=== PATIENT | male | born 1970 | race Caucasian/White ===

== ENCOUNTER 2020-06-01 15:20 | Outpatient (REF) | payer OTHER, SELFPAY | END 2020-06-01 15:21 | disposition home or self-care (01) | LOC: HO.BBR 15:20 | PROVIDERS: Visit Provider Internal Medicine | DX: Z13.89 Encounter for screening for other disorder (principal) ==

== ENCOUNTER 2024-04-06 14:45 | Outpatient (REF) | payer BC, SELFPAY ==
--- OUTSIDE RECORDS SUMMARY | 2024-04-06 14:51 | XMS_ITS | Clinical Summary ---
Author Organization [facility] Address [address] [place] [address] Care Team Providers Care System Developer Associate Manager Name Role Phone Lindsay Bone NP Primary Care Provider [phone] Encounters Date Type Department Care Team Description 04/02/2024 Telephone Hematology Oncology [address] [place] [phone] Phil Casillas MD from Last 3 Months Surgical History Surgery Date Site/Laterality Comments BLADDER TUMOR EXCISION PROCEDURE:BLADDER TUMOR EXCISION Medical History Medical History Date Comments Hemochromatosis DX:Hemochromatos is Asthma DX:Asthma IBS (irritable bowel syndrome) D X:IBS (irritable bowel syndrome) Vitiligo DX:Vitiligo Family History Medical History Relation Name Comments Cancer Father pancreatic Diabetes Maternal Grandmother Parkinsonism Maternal Grandmother Hypertension Mother Relation Name Status Comments Father Maternal Grandmother Mother Social History Tobacco Use Types Packs/Day Years Used Date Smoking Tobacco: Former Smokeless Tobacco: Never Alcohol Use Standard Drinks/Week Comments Yes 0 (1 standard drink = 0.6 oz pur e alcohol) Sex and Gender Information Value Date Recorded Sex Assigned at Not on file Gender Identity Not on file Sexual Orientation Not on file Obstetrics History Last Filed Vital Signs Vital Sign Reading Time Taken Comments Blood Pressure 140/92 09/19/2022 9:43 AM EDT Sit ting Left arm Pulse 71 09/19/2022 9:43 AM EDT Temperature - - Respiratory Rate - - Oxygen Saturation - - Inhaled Oxygen Concentration - - Weight 130 kg (286 lb) 09/19/2022 9:43 AM EDT Height - - Body Mass Index - - Plan of Treatment Upcoming Encounters Date Type Department Care Team (Late st Contact Info) Description 04/16/2024 3:00 PM EST Office Visit Hematology Oncology [address] [place] [phone] Phil Casillas MD [address] [place] [phone] Health Maintenance Due Date Last Done Comments COVID-19 Vaccine (#1) 08/16/1976 Pneumococcal Vaccine: Pediat rics (0 to 5 Years) and At-Risk Patients (6 to 64 Years) (1 of 2 - PCV) 08/16/1977 DTaP,Tdap,and Td Vaccines (1 - Tdap) 08/16/1990 Hepatitis B Vaccines (1 of 3 - 19+ 3-dose series) 08/16/1990 Zoster Vaccines (1 of 2) 08/16/1990 Cholesterol Screening (Lipid Panel) 02/09/2022 Colorectal Cancer Screening: Colonoscopy 02/09/2022 Depression Screening 02/09/2022 HIV Screening 02/09/2022 Hepatitis C Screening 02/09/2022 Social Influencers of Health Screening 02/09/2022 Influenza Vaccine (#1) 2023 HIB Vaccines Aged Out No longer eligi ble based on patient's age to complete this topic HPV Vaccines Aged Out No longer eligi ble based on patient's age to complete this topic Hepatitis A Vaccines Aged Out No long er eligible based on patient's age to complete this topic IPV Vaccines Aged Out No longer eligi ble based on patient's age to complete this topic MMR Vaccines Aged Out No longer eligi ble based on patient's age to complete this topic Meningococcal ACWY Vaccine Aged Out N o longer eligible based on patient's age to complete this topic RSV Immunization Patients Un hannah 20 months Aged Out No longer eligible b ased on patient's age to complete this topic Varicella Vaccines Aged Out No longer eligible based on patient's age to complete this topic Care Teams System Developer Associate Manager Relationship Specialty Start Date End Date Lindsay Bone NP [address] [place] [address] PCP - General 09/19/22
--- OUTSIDE RECORDS SUMMARY | 2024-04-06 14:52 | XMS_ITS | Clinical Summary ---
Author Organization [facility] Address [address] [place] [address] Care Team Providers Care Transcription Specialist Name Role Phone Nohelia Morales Primary Care Provider Unavailabl e Family History Medical History Relation Comments Cancer Father Diabetes Father Hypertension Father Hypertension Mother Relation Status Comments Father Mother Social History Tobacco Use Types Packs/Day Years Used Date Smoking Tobacco: Former Alcohol Use Standard Drinks/Week Comments Yes 0 (1 standard drink = 0.6 oz pure alcohol) Alcoholic Drinks/day: Occasional social drink Sex and Gender Information Value Date Recorded Sex Assigned at Not on file Legal Sex Male 4:52 PM EST Gender Identity Not on file Sexual Orientation Not on file Plan of Treatment Health Maintenance Due Date Last Done Comments Pneumococcal Vaccine: Pediat rics (0 to 5 Years) and At-Risk Patients (6 to 64 Years) (1 of 2 - PCV) 08/16/1977 Hepatitis B Vaccine (1 of 3 - 19+ 3-dose series) 08/16 Colorectal Cancer Screening: Annual FOBT 08/16/2020 Colorectal Cancer Screening: Colonoscopy 08/16/2020 Colorectal Cancer Screening: Sigmoidoscopy 08/16/2020 Influenza Vaccine (#1) [address] [facility] Care Teams Transcription Specialist Relationship Specialty Start Date End Date Nohelia Morales PCP - General 09/04/21
--- OUTSIDE RECORDS SUMMARY | 2024-04-06 14:52 | XMS_ITS | Encounter Summary ---
Author Organization [facility] Address [address] [place] [address] Care Team Providers Care Doll Dresser Name Role Phone Lindsay Bone ANUP Primary Care Provider [phone] Encounter Details Date Type Department Care Team (Late st Contact Info) Description 04/02/2024 Telephone [facility] Hematology Oncology [address] [place] [address] Phil Casillas MD [address] [place] [address] Social History Tobacco Use Types Packs/Day Years Used Date Smoking Tobacco: Former Smokeless Tobacco: Never Alcohol Use Standard Drinks/Week Comments Yes 0 (1 standard drink = 0.6 oz pur e alcohol) Sex and Gender Information Value Date Recorded Sex Assigned at Not on file Gender Identity Not on file Sexual Orientation Not on file documented as of this encounter Progress Notes * Sara Jain MA - 04/02/2024 3:49 PM EST reviewed results. Recommends phlebotomy monthly. Patient needs a FOV scheduled in the next few weeks Phlebotomy order faxed to [facility]. I called patient and lvm, requesting call back to office to schedule a FOV * Sara Jain MA - 04/02/2024 11:11 AM EST I called and spoke to Juan. He [facility] Results printed and scanned. Please review and advise * Phil Casillas MD - 04/02/2024 9:35 AM EST It looks like he missed the appointment last year, therefore please have him do labs make an appointment to see me and after that I will order the phlebotomy please let him know * Guillermina Flowers - 04/02/2024 9:30 AM EST Patient would like to get back on track with phlebotomy orders and is requesting a new order be sent to [facility] and also questions a follow up. Please let him know at [phone] documented in this encounter Plan of Treatment Upcoming Encounters Date Type Department Care Team (Late st Contact Info) Description 04/16/2024 3:00 PM EST Office Visit [facility] Hematology Oncology [address] [place] [phone] Phil Casillas MD [address] [place] [phone] Scheduled Orders Name Type Priority Associated Diagnoses Orde r Schedule Comprehensive metabolic panel Lab Routine Hereditary hemochromatosis (CMS/HCC) Every 12 weeks for 2 Occurrences starting 04/02/2024 until 04/02/2025 CBC and differential Lab Routine Hereditary hemochromatosis (CMS/HCC) Every 12 weeks for 2 Occurrences starting 04/02/2024 until 04/02/2025 Ferritin Lab Routine Hereditary hemochromatosis (CMS/HCC) Every 12 weeks for 2 Occurrences starting 04/02/2024 until 04/02/2025 Iron and TIBC Lab Routine Hereditary hemochromatosis (CMS/HCC) Every 12 weeks for 2 Occurrences starting 04/02/2024 until 04/02/2025 documented as of this encounter Visit Diagnoses Diagnosis Hereditary hemochromatosis (CMS/HCC)- Primary Hereditary hemochromatosis documented in this encounter Care Teams Doll Dresser Relationship Specialty Start Date End Date Lindsay Bone NP [address] [place] [address] PCP - General 09/19/22 documented as of this encounter
--- OUTSIDE RECORDS SUMMARY | 2024-04-06 14:52 | XMS_ITS | Clinical Summary ---
Author Organization [facility] Address [address] [place] [address] Care Team Providers Care Diabetes Specialist Name Role Phone Lindsay Bone NP Primary Care Provider [phone] Allergies Active Allergy Reactions Criticality Noted Date Comments Codeine 05/21/2021 Migraines Penicillins Rash Low 09/07/2016 Benzonatate 05/21/2021 Medications Medication Sig Dispensed Refills Start Date End Date Status metoprolol tartrate (LOPRESSOR) 100 MG tablet Take 100 mg by mouth daily. 0 Active beclomethasone Diprop HFA (Qvar RediHaler) 40 MCG/ACT inhaler Inhale into the lungs. 0 02/12/2021 Active rimegepant (NURTEC ODT) 75 MG TBDP ODT Take 1 tablet (75 mg total) by mouth. 0 Active Active Problems Problem Noted Date Diagnosed Date Weight loss 09/19/2022 H/O total knee replacement, bilateral 09/19/2022 H/O interstitial nephritis 03/13/2017 Stage 2 chronic kidney disease 03/13/2017 Transaminitis 09/10/2016 Malignant neoplasm of overlapping sites of bladd er 09/10/2016 Hereditary hemochromatosis 09/10/2016 Family History Medical History Relation Name Comments Cancer Father pancreatic Diabetes Maternal Grandmother Parkinsonism Maternal Grandmother Hypertension Mother Relation Name Status Comments Father Maternal Grandmother Mother Social History Tobacco Use Types Packs/Day Years Used Date Smoking Tobacco: Former Smokeless Tobacco: Never Alcohol Use Standard Drinks/Week Comments Yes 0 (1 standard drink = 0.6 oz pur e alcohol) social Sex and Gender Information Value Date Recorded Sex Assigned at Not on file Gender Identity Not on file Sexual Orientation Not on file Job Start Date Occupation Industry Not on file Not on file Not on file Last Filed Vital Signs Vital Sign Reading Time Taken Comments Blood Pressure 140/92 09/19/2022 9:43 AM EDT Pulse 71 09/19/2022 9:43 AM EDT Temperature 36.3 ??C (97.4 ??F) 09/19/2022 9:43 AM ED T Respiratory Rate - - Oxygen Saturation 99% 09/19/2022 9:43 AM EDT Inhaled Oxygen Concentration - - Weight 129.7 kg (286 lb) 09/19/2022 9:43 AM EDT Height 188 cm (6' 2 ) 09/15/2018 9:55 AM EDT Body Mass Index 36.72 09/15/2018 9:55 AM EDT Plan of Treatment Health Maintenance Due Date Last Done Comments Hepatitis B Vaccines (1 of 3 - 3-dose series) 1971 Hepatitis C Screening 1971 COVID-19 Vaccine (#1) 08/16/1976 Pneumococcal Vaccine (1 of 2 - PCV) 08/16/1977 Depression Screening 1983 Preventative Health Evaluation 08/16/1989 Shingrix-Zoster Vaccine (1 o f 2) 08/16/1990 Colon Cancer Screening (Colonoscopy) 08/16/2016 Influenza Vaccine (#1) 2023 DTap / Tdap / Td (2 - Td or Tdap) 08/02/2030 08/02/2020, 09/22/2008 RSV Ped < 20 months Aged Out No longe r eligible based on patient's age to complete this topic Care Teams Diabetes Specialist Relationship Specialty Start Date End Date Lindsay Bone NP [address] [address] PCP - General Oncology 09/19/22
== END 2024-04-06 14:46 | disposition home or self-care (01) ==
LOC: HO.BBR 14:45
PROVIDERS: Visit Provider Internal Medicine
DX: Z13.89 Encounter for screening for other disorder (principal)

== ENCOUNTER 2024-05-04 14:52 | Outpatient (REF) | payer BC, SELFPAY ==
--- OUTSIDE RECORDS SUMMARY | 2024-05-04 18:48 | XMS_ITS | Clinical Summary ---
Author Organization [facility] Address [address] [place] [address] Care Team Providers Care Child Adolescent Psychiatrist Name Role Phone Nohelia Morales Primary Care [...] Sigmoidoscopy 08/16/2020 Influenza Vaccine (#1) 2023 Insurance [facility] Care Teams Child Adolescent Psychiatrist Relationship Specialty Start Date End Date Nohelia Morales PCP - General 09/04/21
--- OUTSIDE RECORDS SUMMARY | 2024-05-04 18:48 | XMS_ITS | Clinical Summary ---
Author Organization [facility] Address [address] [place] [address] Phone Care Team Providers Care Senior Product Consultant Name Role Phone MarySarah ANUP Primary Care Provider [phone] Medications Nurtec 75 mg dispersible tablet TAKE 1 TABLET BY MOUTH EVERY OTHER DAY NEEDED FOR MIGRAINE HEADACHES Active Encounters Date Type Department Care Team Description 04/16/2024 3:00 PM EST Office Visit Hematology Oncology [address] [place] [phone] Phil Boo MD Hereditary hemochromatosis (CMS/HCC) (Primary Dx) 04/02/2024 Telephone Hematology Oncology [address] [place] [phone] Phil Boo MD from Last 3 Months Surgical History [...] at Not on file Legal Sex Male 10:23 AM EST Gender Identity Not on file Sexual Orientation Not on file Obstetrics History Last Filed Vital Signs Vital Sign Reading Time Taken Comments Blood Pressure 150/81 04/16/2024 3:03 PM EST Pulse 70 04/16/2024 3:03 PM EST Temperature 36.4 ??C (97.5 ??F) 04/16/2024 3:03 PM ES T Respiratory Rate - - Oxygen Saturation 96% 04/16/2024 3:03 PM EST Inhaled Oxygen Concentration - - Weight 125 kg (275 lb 9.2 oz) 04/16/2024 3:03 PM EST Height - - Body Mass Index - - Plan of Treatment Upcoming Encounters Date Type Department Care Team (Late st Contact Info) Description 05/17/2024 8:30 AM EDT Appointment Ultrasound [address] [place] [address] 04/18/2025 2:00 PM EST Office Visit Hematology Oncology [address] [place] [address] Key-Phil Juarez MD [address] [place] [address] Health Maintenance Due Date Last Done Comments Hepatitis B Vaccines (1 of 3 - 19+ 3-dose series) 08/16/1990 Pneumococcal Vaccine: 50+ Years (1 of 2 - PCV) 08/16/1990 Pneumococcal Vaccine: Pediatrics (0 to 5 Years) and At-Risk Patients (6 to 64 Years) (1 of 2 - PCV) 08/16/1990 Zoster Vaccines (1 of 2) 08/16/1990 Cholesterol Screening (Lipid Panel) 02/09/2022 Colorectal Cancer Screening: Colonoscopy 02/09/2022 Depression Screening 02/09/2022 HIV Screening 02/09/2022 Hepatitis C Screening 02/09/2022 Social Influencers of Health Screening 02/09/2022 COVID-19 Vaccine (4 - 2023-2 5 season) 2023 08/26/2021, 07/27/2020, 06/28/2020 Influenza Vaccine (#1) 2023 Hypertension/CHF/CAD Annual BMP Blood Test 04/16/2024 DTaP,Tdap,and Td Vaccines (4 - Td or Tdap) 08/02/2030 08/02/2020, 05/13/2018, 09/22/2008 HIB Vaccines Aged Out No longer eligi [...] patient's age to complete this topic Meningococcal B Vacine Aged Out No lo nger eligible based on patient's age to complete this topic RSV Immunization Patients Under 20 months Aged Out No longer eligible b ased on patient's age to complete this topic Varicella Vaccines Aged Out No longer eligible based on patient's age to complete this topic Insurance Care Teams Senior Product Consultant Relationship Specialty Start Date End Date Sarah Hernandez NP [address] [facility] [address] [place] [address] PCP - General Nurse Practitioner 04/16/24
--- OUTSIDE RECORDS SUMMARY | 2024-05-04 18:48 | XMS_ITS | Clinical Summary ---
Author Organization [facility] Address [address] [place] [address] Care Team Providers Care Tomato Pulper Operator Name Role Phone Lindsay Bone NP Primary Care Provider [phone] Allergies Active Allergy Reactions Criticality Noted Date [...] age to complete this topic Care Teams Tomato Pulper Operator Relationship Specialty Start Date End Date Lindsay Bone NP [address] [address] PCP - General Oncology 09/19/22
--- OUTSIDE RECORDS SUMMARY | 2024-05-04 18:48 | XMS_ITS | Encounter Summary ---
Author Organization [facility] Address [address] [place] [address] Care Team Providers Care Casing Mixer Name Role Phone Sarah Hernandez NP Primary Care Provider [phone] Reason for Referral * Imaging (Routine) - Authorized Specialty Diagnoses / Procedures Referred By Maricel mahajan Referred To Contact Radiology Diagnoses Hereditary hemochromatosis (CMS/HCC) Procedures US Abdomen Limited Phil Casillas MD [address] [place] [address] Phone: tel: fax: [address] [address] Phone: tel: Referral ID Status Reason Start Date Expiration Date V isits Requested Visits Authorized [id number] Authorized 04/16/2024 04/16/2025 1 1 Encounter Details Date Type Department Care Team (Latest Contact Info) Description 04/16/2024 3:00 PM EST Office Visit [facility] Hematology Oncology [address] [place] [phone] Phil Casillas MD [address] [place] [address] Hereditary hemochromatosis (CMS/HCC) (Primary Dx) Social History Tobacco Use Types Packs/Day Years [...] on file documented as of this encounter Last Filed Vital Signs Vital Sign Reading [...] - - Body Mass Index - - documented in this encounter Progress Notes * Phil Mackey-MD Ann - 04/16/2024 3:00 PM EST CHIEF COMPLAINT: No chief complaint on file. IDENTIFIER:Juan Taylor is a 53 y.o. male. HPI: The patient returns for follow up of hereditary hemochromatosis. For details of initial diagnosis and follow up until JAN 02, 2024- please refer to notes from prior [facility] EMR last note dated 09/19/2022 Patient has been following in clinic intermittently. Most recent note is reviewed. He called the clinic few weeks ago and patient to have a follow-up. Lab work was performed that showed iron saturation at 72% and ferritin 973. Therefore he has been started back on phlebotomy The patient's request reviewed clinic notes, he had a genetic testing performed through his PCP in [place] several years previously, results are not available The following is copied, reviewed and edited Cancer Staging No matching staging information was found for the patient. Oncology History No history exists. 08/2022- Mr Taylor returns for evaluation of hereditary hemochromatosis. Pt was given genetic testing years ago, details not available. 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 He was seen in clinic in 2013, with ferritin in the 600' s and iron saturation 85%. He was started on therapeutic phlebotomy program at [facility], but discontinued after 4 treatments. He haddiffuse musculoskeletal pain and arthritis, which is persistent. REcent lab work at PCP office revealed liver function abnormalities, elevated ferritin at 1140, iron saturation > 90%, therefore here for hematology evaluation. Update medical history -- in the interim patient was diagnosed with bladder cancer (Dr Long Skaggs, Cystoscopy for hematuria), no chemotherapy required, superficial, and is on surveillance cystoscopy program. ROS: GENERAL: No malaise, significant weight loss or fever NECK: No lumps, goiter, pain or significant neck swelling RESPIRATORY: No cough, wheezing or shortness of breath CARDIOVASCULAR: No chest pain, leg swelling or palpitations GI: No abdominal discomfort, blood in stools or black stools MUSCULOSKELETAL: No joint pain or swelling, back pain, or muscle pain. HEMATOLOGY/LYMPHOLOGY No prolonged bleeding, easy bruisability or swollen nodes Other Systems review is non contributory PAST MEDICAL HISTORY: Active Ambulatory Problems Diagnosis Date Noted No Active Ambulatory Problems Resolved Ambulatory Problems Diagnosis Date Noted No Resolved Ambulatory Problems Past Medical History: Diagnosis Date Asthma Hemochromatosis IBS (irritable bowel syndrome) Vitiligo SOCIAL HISTORY: Social History Tobacco Use Smoking status: Former Smokeless tobacco: Never Substance Use Topics Alcohol use: Yes FAMILY HISTORY: Family History Problem Relation Name Age of Onset Hypertension Mother Cancer Father pancreatic Parkinsonism Maternal Grandmother Diabetes Maternal Grandmother Current Outpatient Medications: Nurtec 75 mg dispersible tablet, TAKE 1 TABLET BY MOUTH EVERY OTHER DAY NEEDED FOR MIGRAINE HEADACHES, Disp: , Rfl: Not on File PHYSICAL EXAM: Visit Vitals BP (!) 150/81 (BP Location: Left arm, Patient Position: Sitting) Pulse 70 Temp 36.4 ??C (97.5 ??F) (Temporal) Wt 125 kg (275 lb 9.2 oz) SpO2 96% Smoking Status Former APPEARANCE: Alert and in no acute distress EYES: PERRL, conjunctiva pink and sclera are Normal without icterus ORAL CAVITY: No erythema or exudates NECK: Neck supple, no adenopathy, HEART: RRR with normal S1 and S2, no murmurs, no gallops, no JVD appreciated LUNG: clear to auscultation bilaterally Percussion note normal LYMPH NODES: No palpable superficial adenopathy ABDOMEN: Bowel sounds normoactive, no bruits, soft, non-tender, without organomegaly or palpable masses EXTREMITIES: Extremities warm and well perfused without clubbing, cyanosis, rash or edema NEURO: Oriented X 3, no focal weakness; sensation is normal LABS: Review of Lab results , interpreted No results found for: WBC , HGB , HCT , MCV , PLT No results found for: NA , K , CL , CO2 , GLUCOSE , BUN , CREATININE , CALCIUM , PROT , ALBUMIN , BILITOT , AST , ALT , URICACID , PHOS , MG , ALKPHOS , CKTOTAL , EGFR Review of Imaging, interpreted No image results found. Review of External Documentation Tests ordered - Labs every 3 months IMPRESSION: 1. Hereditary hemochromatosis (CMS/HCC) PLAN: #1 Hereditary hemochromatosis, patient was off Phlebotomy for 3 years Now ferritin is 973 Restart therpeutic phlebotomy q 2 monthly, recheck in 3 months, if no significant improvement may need to change to every 2 weeks phlebotomy 500 ml to be removed each time, referral sent to [facility], FDA approved program However pts blood may not be usable due to recent diagnosis of superficial bladder cancer. Check Hb prior to each phlebotomy, hold if Hb less than 11.5 Patient plans to adhere to the program this time. #2 Follow up in clinic in 6 months Goal ferritin = 50, as patient does not have hepatitis C or other inflammation. He may take 12 -20 treatments to achieve goal. Rec baseline liver USS and screening for hepatoma if any cirrhosis. Testing of family members --patient plans to have testing, and thereafter children as they grow older. #3 at the patient's request I reviewed our prior notes until 2016, however we do not have any documentation of his genetic testing, advised to contact PCP office #4 IBS-symptoms are stable with .elimination diet current follow-up in 1 year and so review results,. In the interim will monitor his lab work. Patient is in agreement with plan Pain Control--no issues Health Care Proxy--no one Phil Casillas MD Cc Sarah Hernandez NP documented in this encounter Plan of Treatment Upcoming Encounters Date Type Department Care Team (Late st Contact Info) Description 05/17/2024 8:30 AM EDT Appointment [facility] Ultrasound [address] [place] [address] 04/18/2025 2:00 PM EST Office Visit [facility] Hematology Oncology [address] [place] [phone] Key-Phil Juarez MD [address] [place] [address] Scheduled Orders Name Type Priority Associated Diagnoses Orde r Schedule US Abdomen Limited Imaging Routine Hereditary hemochromatosis (CMS/HCC) Expected: 04/23/2024 (Approximate), Expires: 04/16/2025 Comprehensive metabolic panel Lab Routine Hereditary hemochromatosis (CMS/HCC) Every 12 weeks for 2 Occurrences starting 04/16/2024 until 04/16/2025 CBC and differential Lab Routine Hereditary hemochromatosis (CMS/HCC) Every 12 weeks for 2 Occurrences starting 04/16/2024 until 04/16/2025 Ferritin Lab Routine Hereditary hemochromatosis (CMS/HCC) Every 12 weeks for 2 Occurrences starting 04/16/2024 until 04/16/2025 Iron and TIBC Lab Routine Hereditary hemochromatosis (CMS/HCC) Every 12 weeks for 2 Occurrences starting 04/16/2024 until 04/16/2025 documented as of this encounter Visit Diagnoses Diagnosis Hereditary hemochromatosis (CMS/HCC)- Primary Hereditary hemochromatosis documented in this encounter Historical Medications * This list may reflect changes made after this encounter. Nurtec 75 mg dispersible tablet TAKE 1 TABLET BY MOUTH EVERY OTHER DAY NEEDED FOR MIGRAINE HEADACHES added in this encounter Care Teams Casing Mixer Relationship Specialty Start Date End Date Sarah Hernandez NP [address] [place] [phone] PCP - General Nurse Practitioner 04/16/24 documented as of this encounter
== END 2024-05-04 14:53 | disposition home or self-care (01) ==
LOC: HO.BBR 14:52
PROVIDERS: Visit Provider Internal Medicine
DX: Z13.89 Encounter for screening for other disorder (principal)

== ENCOUNTER 2024-06-04 12:04 | Outpatient (REF) | payer BC, SELFPAY ==
--- OUTSIDE RECORDS SUMMARY | 2024-06-04 14:03 | XMS_ITS | Clinical Summary ---
Author Organization [facility] Address [address] [place] [address] Phone Care Team Providers Care Software Programmer Name Role Phone Sarah Hernandez NP Primary Care Provider [phone] Medications Nurtec 75 mg dispersible tablet TAKE 1 TABLET BY MOUTH EVERY OTHER DAY NEEDED FOR MIGRAINE HEADACHES Active Encounters Date Type Department Care Team Description 05/10/2024 Telephone [facility] Hematology Oncology [address] [place] [phone] Phil Boo MD 04/16/2024 3:00 PM EST Office Visit [facility] Hematology Oncology [address] [place] [phone] Phil Boo MD Hereditary hemochromatosis (CMS/HCC) (Primary Dx) 04/02/2024 Telephone [facility] Hematology Oncology [address] [place] [phone] Phil Boo MD from Last 3 Months [...] Information Value Date Recorded Sex Assigned at Male 05/12/2024 9:47 AM EDT Legal Sex Male 10:23 AM EST Gender Identity Male 05/12/2024 9:47 AM EDT Sexual Orientation Straight 05/12/2024 9: 47 AM EDT Obstetrics History Last Filed Vital Signs Vital [...] Care Team (Late st Contact Info) Description 06/14/2024 7:00 AM EDT Appointment [facility] Ultrasound [address] [place] [address] 04/18/2025 2:00 PM EST Office Visit [facility] Hematology Oncology [address] [place] [phone] Phil Casillas MD [address] [place] [phone] Health Maintenance Due Date Last Done Comments [...] patient's age to complete this topic Insurance [facility] Care Teams Software Programmer Relationship Specialty Start Date End Date Sarah Hernandez NP [address] [facility] [address] [place] [phone] PCP - General Nurse Practitioner 04/16/24
--- OUTSIDE RECORDS SUMMARY | 2024-06-04 14:03 | XMS_ITS | Clinical Summary ---
Author Organization [facility] Address [address] [place] [address] Care Team Providers Care Production Specialist Name Role Phone Lindsay Bone NP Primary Care Provider [phone] Allergies Active Allergy Reactions Criticality Noted Date [...] age to complete this topic Care Teams Production Specialist Relationship Specialty Start Date End Date Lindsay Bone NP [address] [address] PCP - General Oncology 09/19/22
--- OUTSIDE RECORDS SUMMARY | 2024-06-04 14:03 | XMS_ITS | Clinical Summary ---
Author Organization [facility] Address [address] [place] [address] Care Team Providers Care Brick Setter Operator Name Role Phone Nohelia Morales Primary Care [...] Sigmoidoscopy 08/16/2020 Influenza Vaccine (#1) 2023 Insurance [facility] Care Teams Brick Setter Operator Relationship Specialty Start Date End Date Nohelia Morales PCP - General 09/04/21
== END 2024-06-04 12:05 | disposition home or self-care (01) ==
LOC: HO.BBR 12:04
PROVIDERS: Visit Provider Internal Medicine
DX: Z13.89 Encounter for screening for other disorder (principal)

== ENCOUNTER 2024-07-13 14:59 | Outpatient (REF) | payer BC, SELFPAY ==
--- OUTSIDE RECORDS SUMMARY | 2024-07-13 16:00 | XMS_ITS | Clinical Summary ---
Author Organization [facility] Address [address] [place] [address] Care Team Providers Care Trimmer Sawyer Name Role Phone Nohelia Morales Primary Care [...] Due Date Last Done Comments Hepatitis B Vaccine (1 of 3 - 19+ 3-dose series) 08/16 Pneumococcal Vaccine: 50+ Years (1 of 2 - PCV) 991 Colorectal Cancer Screening: Annual FOBT 08/16/2020 Colorectal Cancer Screening: Colonoscopy 08/16/2020 Colorectal Cancer Screening: Sigmoidoscopy 08/16/2020 Influenza Vaccine (Season Ended) 2024 [place] [id number] [place] [address] Care Teams Trimmer Sawyer Relationship Specialty Start Date End Date Nohelia Morales PCP - General 09/04/21
--- OUTSIDE RECORDS SUMMARY | 2024-07-13 16:00 | XMS_ITS | Clinical Summary ---
Author Organization [facility] Address [address] [place] [address] Care Team Providers Care Flight Teacher Name Role Phone Lindsay Bone NP Primary Care Provider [phone] Allergies Active Allergy Reactions Criticality Noted Date [...] age to complete this topic Care Teams Flight Teacher Relationship Specialty Start Date End Date Lindsay Bone NP [address] [address] PCP - General Oncology 09/19/22
== END 2024-07-13 15:00 | disposition home or self-care (01) ==
LOC: HO.BBR 14:59
PROVIDERS: Visit Provider Internal Medicine
DX: Z13.89 Encounter for screening for other disorder (principal)

== ENCOUNTER 2024-08-20 15:08 | Outpatient (REF) | payer BC, SELFPAY ==
--- OUTSIDE RECORDS SUMMARY | 2024-08-20 15:12 | XMS_ITS | Clinical Summary ---
Author Organization [facility] Address [address] [place] [address] Phone Care Team Providers Care Mediation Commissioner Name Role Phone Sarah Hernandez NP Primary Care Provider [phone] Medications Nurtec 75 mg dispersible tablet TAKE 1 TABLET BY MOUTH EVERY OTHER DAY NEEDED FOR MIGRAINE HEADACHES Active Encounters Date Type Department Care Team Description 06/14/2024 6:33 AM EDT - 06/14/2024 11:59 PM EDT Hospital Encounter [facility] Ultrasound [address] [place] [address] Hereditary hemochromatosis ([facility]/HCC V24) Discharge Disposition: Home or Self Care from Last 3 Months Surgical History Surgery [...] 71 04/16/2024 3:03 PM EST Temperature 36.4 C (97.5 F) 04/16/2024 3:03 PM EST Respiratory Rate - - Oxygen Saturation 96% 04/16/2024 3:03 PM EST Inhaled Oxygen Concentration - - Weight 125 kg (275 lb 9.2 oz) 04/16/2024 3:03 PM EST Height - - Body Mass Index - - Plan of Treatment Upcoming Encounters Date Type Department Care Team (Late st Contact Info) Description 04/18/2025 2:00 PM EST Office Visit [facility] Hematology Oncology [address] [place] [address] Phil Casillas MD [address] [place] [phone] Health Maintenance Due Date Last [...] 2023-2 5 season) 2023 08/26/2021, 07/27/2020, 06/28/2020 Hypertension/CHF/CAD Annual BMP Blood Test 04/16/2024 Influenza Vaccine (Season Ended) 2024 DTaP,Tdap,and Td Vaccines (4 - Td or [...] age to complete this topic Meningococcal B Vaccine Aged Out No l onger eligible based on patient's age to complete this topic RSV Immunization Patients Under 20 months Aged Out No longer eligible b ased on patient's age to complete this topic Varicella Vaccines Aged Out No longer eligible based on patient's age to complete this topic Procedures Procedure Name Priority Date/Time Associated Diagnosis Comments US ABDOMEN LIMITED Routine 06/14/2024 6: 53 AM EDT Hereditary hemochromatosis (CMS/HCC V24) from Last 3 Months Results * US Abdomen Limited (06/14/2024 6:53 AM EDT) Anatomical Region Laterality Modality Body Ultrasound 06/15/2024 11:0 5 AM EDT Impressions 06/15/2024 11:07 AM EDT Echogenic coarsened liver parenchyma without appreciable surface nodularity. Mild splenomegaly. -------- FINAL REPORT -------- Dictated By: Bhupendra Jefferson Dictated Date: 06/15/2024 11:05 ET Assigned Physician: Bhupendra Jefferson Reviewed and Electronically Signed By: Bhupendra Jefferson Signed Date: 06/15/2024 11:07 ET Workstation ID: [id number] Transcribed By: Self Edit Transcribed Date: 06/15/2024 11:05 ET Narrative 06/15/2024 11:07 AM EDT PROCEDURE: Right upper quadrant ultrasound. HISTORY: Hemochromatosis-evaluate for liver cirrhosis and splenomegaly. COMPARISON: None. TECHNIQUE: Grayscale, color Doppler, and spectral Doppler ultrasound evaluation of the right upper quadrant of the abdomen. FINDINGS: LIVER: Echogenic parenchyma. No focal lesion. Normal flow in the main portal vein. BILIARY: Normal appearance of the gallbladder and biliary tree. Negative sonographic Hoang sign. PANCREAS: Visualized portions are normal. RIGHT KIDNEY: Normal size and echotexture. No hydronephrosis or focal lesion. SPLEEN: Mildly enlarged, measuring 13.5 cm craniocaudal. No focal lesion. Procedure Note Bhupendra Jefferson MD - 06/15/2024 PROCEDURE: Right upper quadrant ultrasound. HISTORY: Hemochromatosis-evaluate for liver cirrhosis and splenomegaly. COMPARISON: None. TECHNIQUE: Grayscale, color Doppler, and spectral Doppler ultrasoundevaluation of the right upper quadrant of the abdomen. FINDINGS: LIVER: Echogenic parenchyma. No focal lesion. Normal flow in the mainportal vein. BILIARY: Normal appearance of the gallbladder and biliary tree. Negativesonographic Hoang sign. PANCREAS: Visualized portions are normal. RIGHT KIDNEY: Normal size and echotexture. No hydronephrosis or focallesion. SPLEEN: Mildly enlarged, measuring 13.5 cm craniocaudal. No focallesion. IMPRESSION: Echogenic coarsened liver parenchyma without appreciable surfacenodularity. Mild splenomegaly. -------- FINAL REPORT -------- Dictated By: Bhupendra Jefferson Dictated Date: 06/15/2024 11:05 ET Assigned Physician: Bhupendra Jefferson Reviewed and Electronically Signed By: Bhupendra Jefferson Signed Date: 06/15/2024 11:07 ET Workstation ID: [id number] Transcribed By: Self Edit Transcribed Date: 06/15/2024 11:05 ET us Subramony Vinny DODD [facility] US PROCEDURES F inal Result from Last 3 Months Insurance [facility] Care Teams Mediation Commissioner Relationship Specialty Start Date End Date Sarah Hernandez NP [address] [facility] 1 [place] [address] PCP - General Nurse Practitioner 04/16/24
== END 2024-08-20 15:09 | disposition home or self-care (01) ==
LOC: HO.BBR 15:08
PROVIDERS: Visit Provider Internal Medicine
DX: Z13.89 Encounter for screening for other disorder (principal)

== ENCOUNTER 2024-09-17 14:56 | Outpatient (REF) | payer BC, SELFPAY ==
--- OUTSIDE RECORDS SUMMARY | 2024-09-17 15:00 | XMS_ITS | Clinical Summary ---
Author Organization [facility] Facility Address [address] [place] [address] Care Team Providers Care E Learning Manager Name Role Phone Nohelia Morales Primary Care [...] Cancer Screening: Sigmoidoscopy 08/16/2020 Influenza Vaccine (#1) 2024 Insurance [facility] [place] [id number] [place] [address] Care Teams E Learning Manager Relationship Specialty Start Date End Date Nohelia Morales PCP - General 09/04/21
--- OUTSIDE RECORDS SUMMARY | 2024-09-17 15:00 | XMS_ITS | Clinical Summary ---
Author Organization [facility] Address [address] [place] [phone] Phone Care Team Providers Care Sterile Products Processor Name Role Phone Sarah Hernandez NP Primary Care Provider [phone] Medications Nurtec 75 mg dispersible tablet TAKE 1 TABLET BY MOUTH EVERY OTHER DAY NEEDED FOR MIGRAINE HEADACHES Active Surgical History Surgery Date Site/Laterality Comments BLADDER [...] Description 04/18/2025 2:00 PM EST Office Visit [facility] Hematology Oncology [address] [place] [address] Key-Phil Juarez MD [address] [place] [address] Health Maintenance Due Date Last Done Comments Hepatitis B Vaccines (1 of 3 - 19+ 3-dose series) 08/16/1990 Pneumococcal Vaccine: 50+ Years (1 of 2 - PCV) 08/16/1990 Zoster Vaccines (1 of 2) 08/16/1990 Cholesterol Screening (Lipid Panel) 02/09/2022 Colorectal Cancer Screening: Colonoscopy 02/09/2022 Depression Screening 02/09/2022 HIV Screening 02/09/2022 Hepatitis C Screening 02/09/2022 Social Influencers of Health Screening 02/09/2022 COVID-19 Vaccine (4 - 2023-2 5 season) 2023 08/26/2021, 07/27/2020, 06/28/2020 Hypertension/CHF/CAD Annual BMP Blood Test 04/16/2024 Influenza Vaccine (#1) 2024 DTaP,Tdap,and Td Vaccines (4 - Td [...] patient's age to complete this topic Insurance [facility] Care Teams Sterile Products Processor Relationship Specialty Start Date End Date Sarah Hernandez NP [address] [facility] [address] [place] [address] PCP - General Nurse Practitioner 04/16/24
--- OUTSIDE RECORDS SUMMARY | 2024-09-17 15:00 | XMS_ITS | Clinical Summary ---
Author Organization [facility] Address [address] [place] [address] Care Team Providers Care Music Theory Teacher Name Role Phone Lindsay Bone NP Primary Care Provider [phone] Allergies Active Allergy Reactions Criticality Noted Date [...] 72 09/19/2022 9:43 AM EDT Temperature 36.3 C (97.4 F) 09/19/2022 9:43 AM EDT Respiratory Rate - - Oxygen Saturation 99% [...] Cancer Screening (Colonoscopy) 08/16/2016 Influenza Vaccine (#1) 2024 DTap / Tdap / Td (2 - Td or Tdap) 08/02/2030 08/02/2020, 09/22/2008 RSV Ped < 20 months Aged Out No longe r eligible based on patient's age to complete this topic Care Teams Music Theory Teacher Relationship Specialty Start Date End Date Lindsay Bone NP [address] [facility] [address] [place] [address] PCP - General Oncology 09/19/22
== END 2024-09-17 14:57 | disposition home or self-care (01) ==
LOC: HO.BBR 14:56
PROVIDERS: Visit Provider Internal Medicine
DX: Z13.89 Encounter for screening for other disorder (principal)